=== PATIENT | female | born 1975 | race Two or more races ===

== ENCOUNTER 2024-01-30 16:29 | Emergency (ER) | payer OTHER ==
[~2024-01-30] VITALS: Ht 157.5 cm; Wt 59.8 kg
[2024-01-30 17:07] VITALS: BP 134/84; PULSE 85; RESP 18; O2SAT 99
== END 2024-01-30 20:22 | disposition left against medical advice (07) ==
LOC: ER 16:29
DX: S01.81XA Laceration without foreign body of other part of head, initial encounter (principal); S41.132A Puncture wound without foreign body of left upper arm, initial encounter; Z53.21 Procedure and treatment not carried out due to patient leaving prior to being seen by health care provider; W55.03XA Scratched by cat, initial encounter; Y93.89 Activity, other specified; Y92.89 Other specified places as the place of occurrence of the external cause; Y99.8 Other external cause status